=== PATIENT | female | born 1975 | race Caucasian/White ===

== ENCOUNTER 2017-05-30 06:38 | Observation (INO) ==
[2017-05-30] MEDS ORDERED: Ondansetron 4 MG/2 ML VIAL IVP ONE ×2 (07:15→10:59)
[2017-05-30 07:33] LABS: Basophils % 0.3 %; Hemoglobin 15.3 g/dL (11.5-15.4); Immature Granulocytes % 0.3 % (0-4); Lymphocytes # 0.6 K/mcL (0.6-4.6); Lymphocytes % 19.3 %; Mean Corpuscular HGB Conc 36.4 g/dL (31.6-35.5); Mean Corpuscular Hemoglobin 30.1 pg (28.0-33.3); Mean Corpuscular Volume 82.7 fL (83.0-100.0); Mean Platelet Volume 8.9 fL (9.4-12.4); Monocytes # 0.3 K/mcL (0.0-1.3); Monocytes % 8.7 %; Neutrophils # 2.2 K/mcL (1.6-8.9); Platelet Count 106 K/mcL (140-400); Red Blood Count 5.08 M/mcL (3.82-4.97); Red Cell Distribution Width 12.8 % (11.5-14.5); Segmented Neutrophils % 71.4 %
--- NOTE | 2017-05-30 07:48 | Emergency Department Note ---
Disposition Clinical Impression: Dehydration, Nausea vomiting and diarrhea Hyperglycemia due to type 2 diabetes mellitus Qualifiers: Diabetes mellitus [facility] insulin use: with [facility] use Qualified Code(s): E11.65 - Type 2 diabetes mellitus with hyperglycemia UTI (urinary tract infection) Qualifiers: Urinary tract infection type: site unspecified Hematuria presence: without hematuria Qualified Code(s): N39.0 - Urinary tract infection, site not specified Disposition: Admitted As Inpatient Instructions: Urinary Tract Infection in Women (ED), Diabetic Ketoacidosis (ED) , Gastroenteritis (ED) Referrals: NONE,PCP [Primary Care Provider] - Forms: ED Satisfaction Letter, Work/School Release Time of Disposition: 11:41 General Adult HPI - General Chief complaint: ED General Medical Stated complaint: Flu symptoms glucose is high Time Seen by Provider: 05/30/17 07:00 Source: patient Mode of arrival: ambulatory Limitations: no limitations Nursing Notes Reviewed: Yes Vital Signs Reviewed: Yes - History of Present Illness HPI Narrative: Patient is a 42-year-old female who presents to [facility] ED with a chief complaint of high sugar levels as well as nausea, vomiting, cough runny nose. States her symptoms have been going on for the last 4 days. States everyone in her family has been sick. 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 States she is on sliding scale insulin and has been taking this as scheduled. States her glucose levels have been in the 400s for the last couple days. States she woke up at 1:30 AM and had persistent nausea with vomiting. She has also had diarrhea for the last 2 days. Denies any chest pain, difficulty breathing, abdominal pain, problems with urination or bowel movements. Onset (ago): day(s) (4) Pain Scale: 10 Consistency: intermittent Improves with: nothing Worsens with: nothing Associated symptoms: Reports: cough, fever/chills, loss of appetite, nausea/ vomiting. Denies: rash, shortness of breath Treatments Prior to Arrival: none - Related Data Allergies Allergy/AdvReac Type Severity Reaction Status Date / Time Iodinated Contrast- Oral and Allergy Rash Verified 05/30/17 06:58 IV Dye All systems ED: reviewed and negative except as stated. Past Medical History - Past Medical History Attestation: Yes The following information was validated with the patient. Source: patient Medical history: Reports: diabetes, seizures Psychiatric history: Reports: no psych history, PTSD - Social History Smoking Status: Current every day smoker Alcohol use: Reports: none Drug use: Reports: none Physical Exam - General Limitations: no limitations General appearance: alert - Head Head exam: atraumatic, normocephalic, normal inspection - Eye Eye exam: Present: normal appearance, EOMI - ENT ENT exam: normal exam, normal oropharynx, mucous membranes dry - Neck Neck exam: Present: normal inspection, full ROM, trachea midline - Chest Chest inspection: Present: normal inspection, symmetric chest wall rise - Respiratory Respiratory exam: Present: normal lung sounds bilaterally - Cardiovascular Cardiovascular exam: Present: normal rhythm, tachycardia - Abdominal Exam Abdominal exam: Present: soft, Non-Tender. Absent: tenderness, distention, guarding, rebound, rigidity - Extremities Exam Extremities exam: Present: normal inspection, full ROM. Absent: tenderness, pedal edema - Back Exam Back exam: Present: normal inspection, full ROM. Absent: tenderness - Neurological Exam Neurological exam: Present: alert, oriented X3 - Psychiatric Psychiatric exam: Present: normal affect, normal mood - Skin Skin exam: Present: warm, dry, intact, normal color Course Course Narrative: Patient seen and examined. Hyperglycemia with persistent nausea vomiting and diarrhea. We will place an IV line, gave her 2 L IV fluid bolus. We will get lab work to check for diabetic ketoacidosis. We will give her Zofran to help with her symptoms. We will reassess. - Reevaluation(s) Reevaluation #1: Upon reevaluation, patient is feeling much better. She is getting her second liter of IV fluids currently. We will give her some ice chips. Patient's lab work shows that she is hyperglycemic and has elevated serum ketones. However she is not acidotic and does not have an anion gap. I discussed results with the patient. We are under the understanding that if she is feeling better and able to tolerate oral fluids, we will discharge her home. However if she worsens at any point, we will get her admitted to the hospital. Her urinalysis also shows signs of urinary tract infection. We will give her a dose of ciprofloxacin here. Time: 09:46 Reevaluation #2: Patient feeling more nauseous. We will give her another dose of Zofran. Patient received another dose of Zofran and then was still was feeling nauseated. We will go ahead and get her admitted for intractable nausea, hyperglycemia, borderline DKA. Time: 11:18 Reevaluation #3: I discussed uma with hospitalist Dr. Zavala who has accepted patient for admission. He would like in EKG ordered. We will also give her dose of 0.1 mg/ kg bolus of insulin. We will hold off on an insulin drip since she does not have an elevated anion gap. Time: 11:41 Vital Signs Temperature 99.1 F 05/30/17 06:51 Pulse Rate 123 05/30/17 06:51 Respiratory Rate 20 05/30/17 06:51 Blood Pressure 131/83 05/30/17 06:51 O2 Sat by Pulse Oximetry 93 05/30/17 06:51 Temperature 99.1 F 05/30/17 06:51 Pulse Rate 96 05/30/17 11:00 Respiratory Rate 20 05/30/17 11:00 Blood Pressure 122/75 05/30/17 11:00 O2 Sat by Pulse Oximetry 96 05/30/17 11:00 Oxygen Delivery Oxygen Delivery Room Air Medical Decision Making - Medical Records Medical records reviewed: Yes I reviewed the patient's medical records. - Lab Data Lab results reviewed: Yes I reviewed the patient's lab results. Result diagrams: 05/30/17 07:24 05/30/17 07:24 Lab Results 05/30/17 05/30/17 05/30/17 Range/Units 06:56 06:57 07:24 WBC 3.1 L (4.3-11.1) K/mcL RBC 5.08 H (3.82-4.97) M/mcL Hgb 15.3 (11.5-15.4) g/dL Hct 42.0 (35.3-44.9) % MCV 82.7 L (83.0-100.0) fL MCH 30.1 (28.0-33.3) pg MCHC 36.4 H (31.6-35.5) g/dL RDW 12.8 (11.5-14.5) % Plt Count 106 L (140-400) K/mcL MPV 8.9 L (9.4-12.4) fL Immature Gran % 0.3 (0-4) % Seg Neutrophils % 71.4 % Lymphocytes % 19.3 % Monocytes % 8.7 % Eosinophils % 0.0 % Basophils % 0.3 % Neutrophils # 2.2 (1.6-8.9) K/mcL Lymphocytes # 0.6 (0.6-4.6) K/mcL Monocytes # 0.3 (0.0-1.3) K/mcL Eosinophils # 0.0 (0.0-0.6) K/mcL Basophils # 0.0 (0.0-0.2) K/mcL VBG pH (7.32-7.42) pH Units VBG pCO2 (41-51) mmHg VBG pO2 (25-50) mmHg VBG HCO3 (21-27) mEq/L Sodium (136-145) mEq/L Potassium (3.5-5.1) mEq/L Chloride (98-107) mEq/L Carbon Dioxide (23-29) mEq/L BUN (6-20) mg/dL Creatinine (0.60-1.20) mg/dL Est GFR ( Amer) (> 60) Est GFR (Non-Af Amer) (> 60) BUN/Creatinine Ratio (6-26) Glucose (70-105) mg/dL POC Glucose 434 H* 424 H* (70-99) mg/dL Calculated Osmolality (280-300) Calcium (8.6-10.3) mg/dL Total Bilirubin (0.3-1.0) mg/dL AST (13-39) Units/L ALT (7-52) Units/L Alkaline Phosphatase (34-104) Units/L Serum Total Protein (6.4-8.9) g/dL Albumin (3.5-5.7) g/dL Globulin (2.4-3.5) g/dL Albumin/Globulin Ratio (1.1-2.2) Lipase (11-82) Units/L Beta-Hydroxybutyric Acd (0.02-0.27) mmol/L Urine Color (Yellow) Urine Clarity (Clear) Urine pH (5.0-8.0) pH Units Ur Specific [place] (1.010-1.025) Urine Protein (Neg-Trace) mg/dL Urine Glucose (UA) (Normal) mg/dL Urine Ketones (Negative) mg/dL Urine Blood (Negative) Urine Nitrite (Negative) Urine Bilirubin (Negative) Urine Urobilinogen (Normal) mg/dL Ur Leukocyte Esterase (Negative) Urine Microscopic RBC (0-3) per hpf Urine Microscopic WBC (0-3) per hpf Ur Squamous Epith Cells (None-Few) per lpf Urine Bacteria (None-Few) per hpf Hyaline Casts (None-Few) per lpf Ur Culture Indicated? (NO) 05/30/17 05/30/17 05/30/17 Range/Units 07:24 07:24 07:24 WBC (4.3-11.1) K/mcL RBC (3.82-4.97) M/mcL Hgb (11.5-15.4) g/dL Hct (35.3-44.9) % MCV (83.0-100.0) fL MCH (28.0-33.3) pg MCHC (31.6-35.5) g/dL RDW (11.5-14.5) % Plt Count (140-400) K/mcL MPV (9.4-12.4) fL Immature Gran % (0-4) % Seg Neutrophils % % Lymphocytes % % Monocytes % % Eosinophils % % Basophils % % Neutrophils # (1.6-8.9) K/mcL Lymphocytes # (0.6-4.6) K/mcL Monocytes # (0.0-1.3) K/mcL Eosinophils # (0.0-0.6) K/mcL Basophils # (0.0-0.2) K/mcL VBG pH (7.32-7.42) pH Units VBG pCO2 (41-51) mmHg VBG pO2 (25-50) mmHg VBG HCO3 (21-27) mEq/L Sodium 134 L (136-145) mEq/L Potassium 3.8 (3.5-5.1) mEq/L Chloride 100 (98-107) mEq/L Carbon Dioxide 22 L (23-29) mEq/L BUN 22 H (6-20) mg/dL Creatinine 0.68 (0.60-1.20) mg/dL Est GFR ( Amer) > 60 (> 60) Est GFR (Non-Af Amer) > 60 (> 60) BUN/Creatinine Ratio 32 H (6-26) Glucose 430 H (70-105) mg/dL POC Glucose (70-99) mg/dL Calculated Osmolality 300 (280-300) Calcium 9.4 (8.6-10.3) mg/dL Total Bilirubin 0.6 (0.3-1.0) mg/dL AST 19 (13-39) Units/L ALT 13 (7-52) Units/L Alkaline Phosphatase 99 (34-104) Units/L Serum Total Protein 7.3 (6.4-8.9) g/dL Albumin 4.3 (3.5-5.7) g/dL Globulin 3.0 (2.4-3.5) g/dL Albumin/Globulin Ratio 1.4 (1.1-2.2) Lipase 8 L (11-82) Units/L Beta-Hydroxybutyric Acd > 2.00 H (0.02-0.27) mmol/L Urine Color (Yellow) Urine Clarity (Clear) Urine pH (5.0-8.0) pH Units Ur Specific [place] (1.010-1.025) Urine Protein (Neg-Trace) mg/dL Urine Glucose (UA) (Normal) mg/dL Urine Ketones (Negative) mg/dL Urine Blood (Negative) Urine Nitrite (Negative) Urine Bilirubin (Negative) Urine Urobilinogen (Normal) mg/dL Ur Leukocyte Esterase (Negative) Urine Microscopic RBC (0-3) per hpf Urine Microscopic WBC (0-3) per hpf Ur Squamous Epith Cells (None-Few) per lpf Urine Bacteria (None-Few) per hpf Hyaline Casts (None-Few) per lpf Ur Culture Indicated? (NO) 05/30/17 05/30/17 05/30/17 Range/Units 07:45 07:48 10:42 WBC (4.3-11.1) K/mcL RBC (3.82-4.97) M/mcL Hgb (11.5-15.4) g/dL Hct (35.3-44.9) % MCV (83.0-100.0) fL MCH (28.0-33.3) pg MCHC (31.6-35.5) g/dL RDW (11.5-14.5) % Plt Count (140-400) K/mcL MPV (9.4-12.4) fL Immature Gran % (0-4) % Seg Neutrophils % % Lymphocytes % % Monocytes % % Eosinophils % % Basophils % % Neutrophils # (1.6-8.9) K/mcL Lymphocytes # (0.6-4.6) K/mcL Monocytes # (0.0-1.3) K/mcL Eosinophils # (0.0-0.6) K/mcL Basophils # (0.0-0.2) K/mcL VBG pH 7.37 (7.32-7.42) pH Units VBG pCO2 37 L (41-51) mmHg VBG pO2 108 H (25-50) mmHg VBG HCO3 21 (21-27) mEq/L Sodium (136-145) mEq/L Potassium (3.5-5.1) mEq/L Chloride (98-107) mEq/L Carbon Dioxide (23-29) mEq/L BUN (6-20) mg/dL Creatinine (0.60-1.20) mg/dL Est GFR ( Amer) (> 60) Est GFR (Non-Af Amer) (> 60) BUN/Creatinine Ratio (6-26) Glucose (70-105) mg/dL POC Glucose 264 H (70-99) mg/dL Calculated Osmolality (280-300) Calcium (8.6-10.3) mg/dL Total Bilirubin (0.3-1.0) mg/dL AST (13-39) Units/L ALT (7-52) Units/L Alkaline Phosphatase (34-104) Units/L Serum Total Protein (6.4-8.9) g/dL Albumin (3.5-5.7) g/dL Globulin (2.4-3.5) g/dL Albumin/Globulin Ratio (1.1-2.2) Lipase (11-82) Units/L Beta-Hydroxybutyric Acd (0.02-0.27) mmol/L Urine Color Yellow (Yellow) Urine Clarity Hazy A (Clear) Urine pH 6.0 (5.0-8.0) pH Units Ur Specific [place] > 1.030 H (1.010-1.025) Urine Protein 30 H (Neg-Trace) mg/dL Urine Glucose (UA) >=1000 H (Normal) mg/dL Urine Ketones 80 H (Negative) mg/dL Urine Blood Large H (Negative) Urine Nitrite Positive A (Negative) Urine Bilirubin Negative (Negative) Urine Urobilinogen Normal (Normal) mg/dL Ur Leukocyte Esterase Small H (Negative) Urine Microscopic RBC 15-30 H (0-3) per hpf Urine Microscopic WBC TNTC H (0-3) per hpf Ur Squamous Epith Cells Moderate H (None-Few) per lpf Urine Bacteria Many H (None-Few) per hpf Hyaline Casts None Seen (None-Few) per lpf Ur Culture Indicated? YES A (NO)
[2017-05-30 07:50] LABS: VBG HCO3 21 mEq/L (21-27); VBG PCO2 37 mmHg (41-51); VBG PH 7.37 pH Units (7.32-7.42); VBG PO2 108 mmHg (25-50)
[2017-05-30 07:55] LABS: Alanine Aminotransferase 13 Units/L (7-52); Albumin 4.3 g/dL (3.5-5.7); Albumin/Globulin Ratio 1.4 (1.1-2.2); Alkaline Phosphatase 99 Units/L (34-104); Aspartate Amino Transferase 19 Units/L (13-39); BUN/Creatinine Ratio 32 (6-26); Bilirubin,Total 0.6 mg/dL (0.3-1.0); Blood Urea Nitrogen 22 mg/dL (6-20); Calcium 9.4 mg/dL (8.6-10.3); Carbon Dioxide 22 mEq/L (23-29); Chloride 100 mEq/L (98-107); Glucose 430 mg/dL (70-105); Osmolality,Calculated 300 (280-300); Potassium 3.8 mEq/L (3.5-5.1); Sodium 134 mEq/L (136-145); Total Protein 7.3 g/dL (6.4-8.9); eGFR For African Americans > 60 (> 60); eGFR For Non-African Americans > 60 (> 60)
--- NOTE | 2017-05-30 08:12 | Emergency Department Note ---
Disposition Clinical Impression: Dehydration Hyperglycemia due to type 2 diabetes mellitus Qualifiers: Diabetes mellitus custodial insulin use: with oil heaterman use Qualified Code(s): E11.65 - Type 2 diabetes mellitus with hyperglycemia; Z79.4 - intermediate card tender (current ) use of insulin; Z79.4 - retirement (current) use of insulin; Z79.4 - intermediate card tender (current) use of insulin; Z79.4 - intermediate card tender (current) use of insulin Disposition: Still a Patient Forms: ED Satisfaction Letter, Work/School Release General Adult HPI - General Chief complaint: ED General Medical Stated complaint: Flu symptoms glucose is high Time Seen by Provider: 05/30/17 07:00 Source: patient Mode of arrival: ambulatory Limitations: no limitations - History of Present Illness Pain Scale: 10 Improves with: nothing Worsens with: nothing Associated symptoms: Reports: cough, fever/chills, loss of appetite, nausea/ vomiting. Denies: rash, shortness of breath Treatments Prior to Arrival: none - Related Data Allergies Allergy/AdvReac Type Severity Reaction Status Date / Time Iodinated Contrast- Oral and Allergy Rash Verified 05/30/17 06:58 IV Dye Past Medical History - Past Medical History Medical history: Reports: diabetes, seizures Psychiatric history: Reports: no psych history, PTSD - Social History Smoking Status: Current every day smoker Alcohol use: Reports: none Drug use: Reports: none Physical Exam - General Limitations: no limitations General appearance: alert Course - Reevaluation(s) Reevaluation #1: Attestation note I examined this patient and my medical decision-making was reviewed with the emergency medicine resident. I agree with the documented findings, disposition and treatment plan as described except to the extent set forth below. Patient seen with emergency medicine resident Dr. Cayla Oscar, Please see a copy of his note for details of the H&P, ED evaluation, management and disposition. I have independently evaluated the patient and confirmed appropriate portions of the history and physical exam. Briefly 42-year-old female history of pancreatic cyst is on daily insulin injections presents with nausea vomiting and loose stools. Hyperglycemic at 450. Patient is getting IV fluids screening labs disposition is pending. Provided 30 minutes of critical care service for this patient. I will try to exclude DKA or hyperglycemic hyperosmolar nonketotic state. Time: 08:11 Vital Signs Temperature 99.1 F 05/30/17 06:51 Pulse Rate 123 05/30/17 06:51 Respiratory Rate 20 05/30/17 06:51 Blood Pressure 131/83 05/30/17 06:51 O2 Sat by Pulse Oximetry 93 05/30/17 06:51 Temperature 99.1 F 05/30/17 06:51 Pulse Rate 106 05/30/17 07:30 Respiratory Rate 20 05/30/17 07:30 Blood Pressure 125/82 05/30/17 07:30 O2 Sat by Pulse Oximetry 93 05/30/17 07:56 Oxygen Delivery Oxygen Delivery Room Air Medical Decision Making - Lab Data Result diagrams: 05/30/17 07:24 05/30/17 07:24 Lab Results 05/30/17 05/30/17 05/30/17 Range/Units 06:56 06:57 07:24 WBC 3.1 L (4.3-11.1) K/mcL RBC 5.08 H (3.82-4.97) M/mcL Hgb 15.3 (11.5-15.4) g/dL Hct 42.0 (35.3-44.9) % MCV 82.7 L (83.0-100.0) fL MCH 30.1 (28.0-33.3) pg MCHC 36.4 H (31.6-35.5) g/dL RDW 12.8 (11.5-14.5) % Plt Count 106 L (140-400) K/mcL MPV 8.9 L (9.4-12.4) fL Immature Gran % 0.3 (0-4) % Seg Neutrophils % 71.4 % Lymphocytes % 19.3 % Monocytes % 8.7 % Eosinophils % 0.0 % Basophils % 0.3 % Neutrophils # 2.2 (1.6-8.9) K/mcL Lymphocytes # 0.6 (0.6-4.6) K/mcL Monocytes # 0.3 (0.0-1.3) K/mcL Eosinophils # 0.0 (0.0-0.6) K/mcL Basophils # 0.0 (0.0-0.2) K/mcL VBG pH (7.32-7.42) pH Units VBG pCO2 (41-51) mmHg VBG pO2 (25-50) mmHg VBG HCO3 (21-27) mEq/L Sodium (136-145) mEq/L Potassium (3.5-5.1) mEq/L Chloride (98-107) mEq/L Carbon Dioxide (23-29) mEq/L BUN (6-20) mg/dL Creatinine (0.60-1.20) mg/dL Est GFR ( Amer) (> 60) Est GFR (Non-Af Amer) (> 60) BUN/Creatinine Ratio (6-26) Glucose (70-105) mg/dL POC Glucose 434 H* 424 H* (70-99) mg/dL Calculated Osmolality (280-300) Calcium (8.6-10.3) mg/dL Total Bilirubin (0.3-1.0) mg/dL AST (13-39) Units/L ALT (7-52) Units/L Alkaline Phosphatase (34-104) Units/L Serum Total Protein (6.4-8.9) g/dL Albumin (3.5-5.7) g/dL Globulin (2.4-3.5) g/dL Albumin/Globulin Ratio (1.1-2.2) Lipase (11-82) Units/L 05/30/17 05/30/17 05/30/17 Range/Units 07:24 07:24 07:45 WBC (4.3-11.1) K/mcL RBC (3.82-4.97) M/mcL Hgb (11.5-15.4) g/dL Hct (35.3-44.9) % MCV (83.0-100.0) fL MCH (28.0-33.3) pg MCHC (31.6-35.5) g/dL RDW (11.5-14.5) % Plt Count (140-400) K/mcL MPV (9.4-12.4) fL Immature Gran % (0-4) % Seg Neutrophils % % Lymphocytes % % Monocytes % % Eosinophils % % Basophils % % Neutrophils # (1.6-8.9) K/mcL Lymphocytes # (0.6-4.6) K/mcL Monocytes # (0.0-1.3) K/mcL Eosinophils # (0.0-0.6) K/mcL Basophils # (0.0-0.2) K/mcL VBG pH 7.37 (7.32-7.42) pH Units VBG pCO2 37 L (41-51) mmHg VBG pO2 108 H (25-50) mmHg VBG HCO3 21 (21-27) mEq/L Sodium 134 L (136-145) mEq/L Potassium 3.8 (3.5-5.1) mEq/L Chloride 100 (98-107) mEq/L Carbon Dioxide 22 L (23-29) mEq/L BUN 22 H (6-20) mg/dL Creatinine 0.68 (0.60-1.20) mg/dL Est GFR ( Amer) > 60 (> 60) Est GFR (Non-Af Amer) > 60 (> 60) BUN/Creatinine Ratio 32 H (6-26) Glucose 430 H (70-105) mg/dL POC Glucose (70-99) mg/dL Calculated Osmolality 300 (280-300) Calcium 9.4 (8.6-10.3) mg/dL Total Bilirubin 0.6 (0.3-1.0) mg/dL AST 19 (13-39) Units/L ALT 13 (7-52) Units/L Alkaline Phosphatase 99 (34-104) Units/L Serum Total Protein 7.3 (6.4-8.9) g/dL Albumin 4.3 (3.5-5.7) g/dL Globulin 3.0 (2.4-3.5) g/dL Albumin/Globulin Ratio 1.4 (1.1-2.2) Lipase 8 L (11-82) Units/L
[2017-05-30] MEDS: 0.9 % Sodium Chloride 1,000 ML IVC SCH ×3 (08:37→17:11)
[2017-05-30 08:46] LABS: Bilirubin,Urine Negative (Negative); Blood,Urine Large (Negative); Color,Urine Yellow (Yellow); Glucose,Urine (UA) >=1000 mg/dL (Normal); Ketones,Urine 80 mg/dL (Negative); Leukocyte Esterase,Urine Small (Negative); Nitrite,Urine Positive (Negative); Protein,Urine 30 mg/dL (Neg-Trace); Specific Gravity,Urine > 1.030 (1.010-1.025); Urobilinogen,Urine Normal (Normal)
[2017-05-30 08:49] LABS: Bacteria,Urine Many per hpf (None-Few); Hyaline Casts,Urine None Seen per lpf (None-Few); RBC,Urine 15-30 per hpf (0-3); Squamous Epithelial Cell,Urine Moderate per lpf (None-Few); WBC,Urine TNTC per hpf (0-3)
[2017-05-30 08:51] LABS: Clarity,Urine Hazy (Clear)
[2017-05-30] MEDS ORDERED: Insulin Regular, Human 100 UNIT/ML IV ONE (11:45)
[2017-05-30] MEDS ORDERED: *HR* Dextrose 50 % in Water (Syg) 50 ML SYRINGE IVP PRN (14:00)
[2017-05-30] MEDS ORDERED: Dextrose Gel 15 GM/37.5 ML TUBE PO PRN ×2 (14:00)
[2017-05-30] MEDS ORDERED: D5% in Water 1,000 ML IVC PRN (14:00)
--- NOTE | 2017-05-30 16:57 | Electrocardiograph Report ---
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
[2017-05-30] MEDS ORDERED: Insulin DETEMIR 100 UNIT/ML X5UNITS SQ ONE (17:00)
[2017-05-30] MEDS: Insulin LISPRO 300 UNITS/3 ML VIAL SQ SCH (17:10)
[2017-05-30] MEDS ORDERED: 0.9 % Sodium Chloride 1,000 ML IVC ONE (19:19)
[2017-05-30] MEDS: cefTRIAXone 2,000 MG in Water for inj. (sterile) 20 ML 20 ML IVP SCH (20:17)
[2017-05-30] MEDS ORDERED: clonazePAM 1 MG TABLET PO PRN (21:47)
[2017-05-30] MEDS ORDERED: Albuterol 2.5 MG/3 ML NEBULIZER IH PRN (21:59)
[2017-05-30] MEDS ORDERED: Azithromycin 500 MG in D5% in Water 250 ML IVPB SCH (22:00)
--- NOTE | 2017-05-30 22:04 | Internal Med History&Physical ---
Date of Encounter: 05/30/17 Time of Encounter: 16:00 Internal Medicine - H&P: HPI Chief complaint: cough, History of present illness: Ms. Arreola is a 42 year old female history of pancreatic pseudocyst, pancreatic disorder who presents with complaint of feeling ill. Patient notes feeling ill cough, some left-sided back pain. Patient notes she thinks she has type 2 diabetes. Patient also diabetes has been treated by her pancreatic "cysts". Patient was positive sick contacts at home in multiple family members with upper respiratory tract symptoms. Patient notes cough productive of clear sputum. Patient denies hemoptysis. Patient denies dysuria or diarrhea. Patient also fleeting abdominal discomfort. Patient with episode of loose stool which is now resolved. She denies melena or hematochezia. Patient to be admitted for further evaluation. Past Med Surg Social Fam HX - Past Medical History Medical history: diabetes, seizures Psychiatric history: no psych history, PTSD - Past Surgical History Surgical History: , cholecystectomy, hysterectomy - Social History Smoking Status: Current every day smoker Packs per day: 1 Smokeless Tobacco Status: No Alcohol use: none Drug use: none - Additional Family History Additional family history: Negative for this particular admission Internal Medicine - H&P: Meds Cyclobenzaprine HCl 5 mg PO TID PRN 05/30/17 [History] Insulin ASPART [NovoLOG] 0 unit SQ TIDWM 05/30/17 [History] Insulin Glargine,Hum.rec.anlog [Lantus Solostar] 30 unit SQ HS 05/30/17 [History ] Phenytoin ER [Dilantin ER] 200 mg PO BID 05/30/17 [History] clonazePAM [Klonopin] 1 mg PO TID PRN 05/30/17 [History] 3 Allergy/AdvReac Type Severity Reaction Status Date / Time Iodinated Contrast- Oral and Allergy Rash Verified 05/30/17 06:58 IV Dye All Systems PM: A 10-system review of systems was performed and is negative for pertinent findings except as documented above in the HPI. Review of systems: All systems reviewed and negative except as mentioned in history of present illness - Constitutional Vitals: Temp Pulse Resp BP Pulse Ox 98.8 F 96 16 110/69 96 05/30/17 20:41 05/30/17 20:41 05/30/17 20:41 05/30/17 20:41 05/30/17 20:41 Vital signs as above Gen.: On per distress, cooperative, able to speak in full sentences HEENT: Atraumatic, normocephalic, pupils are intact, PERRL, there is no scleral icterus Neck: No JVD dependable patient for range of motion Heart: Normal S1 and S2 regular rate and rhythm Abdomen soft, nontender, nondistended, positive bowel sounds, no guarding, no rigidity Back: mild CVA Tenderness Musculoskeletal: Patient moves all 4 extremities freely, no pain to palpation of the large joints, tenderness, no pedal edema Neuro: Nonfocal, no lateralization, Skin: Intact. Internal Med - H&P Results - Labs CBC & Chem 7: 05/30/17 07:24 05/30/17 22:03 - Impressions ITS Impressions Chest CT 05/30/17 19:21 IMPRESSION: Mediastinal adenopathy. Faint ground-glass and nodular density in the right middle lobe. This is indeterminate may represent a small segment of atelectasis or pneumonia. A pathologic nodule is considered less likely. However, given the mediastinal adenopathy, follow-up imaging is required. Small pleural effusions with associated dependent atelectasis. Pneumonia is considered less likely. D/ / Fuentes Smith / Fuentes Smith Interpreting Provider: Fuentes Smith Abdomen/Pelvis CT 05/30/17 19:23 IMPRESSION: 1. Patient has small pericardial effusion, and small bilateral pleural effusions. 2. Pancreas contains multiple calcifications likely related to chronic pancreatitis. 3. Splenomegaly with prominent splenic vessels. 4. Urinary bladder demonstrates wall thickening and contains some intraluminal air, appearance most compatible with cystitis. Other findings as above. D/ / 05/30/2017 20:42:45 Brooklynn Dong MD / Yvonne Sherwood Interpreting Provider: Brooklynn Dong MD - Assessment and plan (1) PNA (pneumonia) Current Visit: Yes Status: Acute Assessment and plan: Patient with cough, sputum production CT chest shows evidence of atelectasis versus early pneumonia check blood culture, urine strep, Legionella, Mycoplasma, respiratory viral panel Sputum culture Empiric antibiotics, abnormal CAT scan shows evidence of mediastinal lymphadenopathy, etiology to be determined Pulmonary consultation in a.m. Qualifiers: Qualified Code(s): J18.9 - Pneumonia, unspecified organism (2) Mediastinal adenopathy Current Visit: Yes Status: Acute Assessment and plan: see above , will need pulmonary consultation (3) Dehydration Current Visit: Yes Status: Acute Assessment and plan: Secondary to nausea and vomiting Goal directed fluid resuscitation (4) Hyperglycemia due to type 2 diabetes mellitus Current Visit: Yes Status: Acute Assessment and plan: Per patient she has history of type 2 diabetes At this time patient has non-anion Metabolic acidosis. Patient has been having diarrhea prior to admission. Insulin sliding scale, restart Lantus, serial Accu-Cheks Check stool culture, C. difficile, Goal-directed fluid resuscitation Qualifiers: Diabetes mellitus petroleum terminal plant operator insulin use: with petroleum terminal plant operator use Qualified Code( s): E11.65 - Type 2 diabetes mellitus with hyperglycemia; Z79.4 - jail ( current) use of insulin; Z79.4 - jail (current) use of insulin; Z79.4 - jail (current) use of insulin; Z79.4 - termite control technician (current) use of insulin (5) Nausea vomiting and diarrhea Current Visit: Yes Status: Acute Assessment and plan: See above (6) UTI (urinary tract infection) Current Visit: Yes Status: Acute Assessment and plan: Evidence of cystitis noted on CAT scan, no obstruction Empiric parenteral antibiotics, urine culture, blood culture Qualifiers: Urinary tract infection type: site unspecified Hematuria presence: without hematuria Qualified Code(s): N39.0 - Urinary tract infection, site not specified (7) DVT prophylaxis Current Visit: Yes Status: Acute Assessment and plan: SCD's for VTE prophylaxis , hold chemical prophylaxis for now pending any possible intervention Further condition critical course, repeat laboratory data, from a neurologic, patient may require additional consultation - Time Spent With Patient Total time spent is greater than 50% in coordination of care (as documented) at patient's floor/unit and/or counseling patient:
[2017-05-30 22:39] LABS: Alanine Aminotransferase 8 Units/L (7-52); Albumin/Globulin Ratio 1.3 (1.1-2.2); Alkaline Phosphatase 65 Units/L (34-104); Aspartate Amino Transferase 15 Units/L (13-39); BUN/Creatinine Ratio 25 (6-26); Bilirubin,Total 0.3 mg/dL (0.3-1.0); Blood Urea Nitrogen 14 mg/dL (6-20); Calcium 7.8 mg/dL (8.6-10.3); Carbon Dioxide 21 mEq/L (23-29); Chloride 107 mEq/L (98-107); Globulin 2.3 g/dL (2.4-3.5); Glucose 314 mg/dL (70-105); Osmolality,Calculated 294 (280-300); Potassium 3.7 mEq/L (3.5-5.1); Sodium 136 mEq/L (136-145); Total Protein 5.3 g/dL (6.4-8.9); eGFR For African Americans > 60 (> 60); eGFR For Non-African Americans > 60 (> 60)
[2017-05-30] MEDS ORDERED: Acetaminophen 325 MG TABLET PO PRN (23:24)
[2017-05-30 23:45] LABS: Bilirubin,Urine Negative (Negative); Blood,Urine Moderate (Negative); Clarity,Urine Cloudy (Clear); Color,Urine Yellow (Yellow); Glucose,Urine (UA) >=1000 mg/dL (Normal); Ketones,Urine 40 mg/dL (Negative); Leukocyte Esterase,Urine Small (Negative); Nitrite,Urine Negative (Negative); Protein,Urine 30 mg/dL (Neg-Trace); Specific Gravity,Urine 1.029 (1.010-1.025); Urobilinogen,Urine Normal (Normal)
[2017-05-30 23:46] LABS: Bacteria,Urine None Seen per hpf (None-Few); Hyaline Casts,Urine None Seen per lpf (None-Few); RBC,Urine 50-100 per hpf (0-3); Squamous Epithelial Cell,Urine Many per lpf (None-Few); WBC,Urine TNTC per hpf (0-3)
[2017-05-30] MEDS: Insulin DETEMIR 100 UNIT/ML X5UNITS SQ SCH (23:50)
[2017-05-31 00:28] LABS: Adenovirus Not Detected (Not Detect); Bordetella Pertussis Not Detected (Not Detect); Chlamydophila pneumoniae Not Detected (Not Detect); Coronavirus 229E Not Detected (Not Detect); Coronavirus HKU1 Not Detected (Not Detect); Coronavirus NL63 Not Detected (Not Detect); Coronavirus OC43 Not Detected (Not Detect); Human Metapneumovirus Not Detected (Not Detect); Human Rhinovirus/Enterovirus Not Detected (Not Detect); Influenza A Subtype 2009 H1 Not Detected (Not Detect); Influenza A Untypeable Not Detected (Not Detect); Mycoplasma pneumoniae Not Detected (Not Detect); Parainfluenza Virus 1 Not Detected (Not Detect); Parainfluenza Virus 2 Not Detected (Not Detect); Parainfluenza Virus 3 Not Detected (Not Detect); Parainfluenza Virus 4 Not Detected (Not Detect); Respiratory Syncytial Virus Not Detected (Not Detect)
[2017-05-31 00:29] LABS: Influenza B ***DETECTED*** (Not Detect)
[2017-05-31] MEDS: Insulin LISPRO 300 UNITS/3 ML VIAL SQ SCH ×5 (08:41→17:34)
--- NOTE | 2017-05-31 10:29 | Internal Med Progress Note ---
Date of Encounter: 05/31/17 Time of Encounter: 10:29 - Assessment and plan (1) Influenza B Current Visit: Yes Status: Acute Assessment and plan: Sepsis secondary to influenza B, possible community-acquired pneumonia and acute cystitis/UTI SIRS: White blood cell count is 2.1, heart rate was 123, improving Continue Tamiflu day #2 Continue Rocephin day #2 Urine culture pending IV fluids (2) Dehydration Current Visit: Yes Status: Acute Assessment and plan: Secondary to nausea and vomiting Goal directed fluid resuscitation (3) Hyperglycemia due to type 2 diabetes mellitus Current Visit: Yes Status: Acute Assessment and plan: Per patient she has history of type 2 diabetes has non-anion Metabolic acidosis. Patient has been having diarrhea prior to admission. Insulin sliding scale, Levemir, start Humalog 8 units 3 times a day Qualifiers: Diabetes mellitus fpc insulin use: with fpc use Qualified Code( s): E11.65 - Type 2 diabetes mellitus with hyperglycemia; Z79.4 - [facility] ( current) use of insulin; Z79.4 - [facility] (current) use of insulin; Z79.4 - [facility] (current) use of insulin; Z79.4 - [facility] (current) use of insulin (4) UTI (urinary tract infection) Current Visit: Yes Status: Acute Assessment and plan: Acute cystitis Evidence of cystitis noted on CAT scan, no obstruction Continue Rocephin day #2 urine culture, blood culture Qualifiers: Urinary tract infection type: site unspecified Hematuria presence: without hematuria Qualified Code(s): N39.0 - Urinary tract infection, site not specified (5) PNA (pneumonia) Current Visit: Yes Status: Acute Assessment and plan: Secondary to influenza B Continue Tamiflu day #2 CAT scan shows evidence of mediastinal lymphadenopathy, etiology to be determined May discontinue azithromycin. Qualifiers: Qualified Code(s): J18.9 - Pneumonia, unspecified organism (6) Mediastinal adenopathy Current Visit: Yes Status: Acute Assessment and plan: Likely due to influenza (7) Seizures Current Visit: Yes Status: Acute Assessment and plan: History of seizure disorder Continue Dilantin - Time Spent With Patient Total time spent is greater than 50% in coordination of care (as documented) at patient's floor/unit and/or counseling patient: - Subjective Interval history: Complaining of mild shortness of breath, less dysuria, no chest pain, no abdominal pain, no diarrhea, no fevers, no headaches - Constitutional Vitals: Temp Pulse Resp BP Pulse Ox 98.7 F 79 16 108/68 95 05/31/17 07:36 05/31/17 07:36 05/31/17 07:36 05/31/17 07:36 05/31/17 07:36 General appearance: Present: A&O X 3 - Head Head exam: Present: atraumatic, normocephalic - Eye Eye exam: Present: PERRL, conjuntiva pink, sclera anicteric Pupils: Present: PERRL - Neck Neck exam general surgery: Present: supple, trachea midline. Absent: lymphadenopathy - Respiratory Respiratory exam: Present: CTAB. Absent: accessory muscle use, rales, rhonchi, wheezes - Cardiovascular Cardiovascular exam: Present: RRR, +S1, +S2. Absent: diastolic murmur, gallop, rubs, systolic murmur - GI/Abdominal GI/Abdominal exam: Present: normal bowel sounds, soft, no peritoneal signs. Absent: distended, tenderness - Extremities Exam Extremities exam: Present: warm, radial pulses palpable and symmetrical. Absent : calf tenderness, cyanotic, pedal edema - Neurological Exam Neurological exam: Present: CN II-XII intact, oriented X3, no focal deficits. Absent: pronater drift, facial droop, speech deficit - Skin Skin exam: Present: dry, intact Internal Medicine: Result - Labs CBC & Chem 7: 05/30/17 07:24 05/30/17 22:03 Labs: BMP 05/30/17 22:03 Sodium 136 Potassium 3.7 Chloride 107 Carbon Dioxide 21 L BUN 14 Creatinine 0.57 L Glucose 314 H Calcium 7.8 L Liver Function 05/30/17 Range/Units 22:03 Total Bilirubin 0.3 (0.3-1.0) mg/dL AST 15 (13-39) Units/L ALT 8 (7-52) Units/L Alkaline Phosphatase 65 (34-104) Units/L Albumin 3.0 L (3.5-5.7) g/dL Urine 05/30/17 Range/Units 23:00 Urine Color Yellow (Yellow) Urine Clarity Cloudy A (Clear) Urine pH 6.0 (5.0-8.0) pH Units Ur Specific [place] 1.029 H (1.010-1.025) Urine Protein 30 H (Neg-Trace) mg/dL Urine Glucose (UA) >=1000 H (Normal) mg/dL - Impressions Impressions Chest CT 05/30/17 19:21 IMPRESSION: Mediastinal adenopathy. Faint ground-glass and nodular density in the right middle lobe. This is indeterminate may represent a small segment of atelectasis or pneumonia. A pathologic nodule is considered less likely. However, given the mediastinal adenopathy, follow-up imaging is required. Small pleural effusions with associated dependent atelectasis. Pneumonia is considered less likely. D/ / Fuentes Smith / Fuentes Smith Interpreting Provider: Fuentes Smith Abdomen/Pelvis CT 05/30/17 19:23 IMPRESSION: 1. Patient has small pericardial effusion, and small bilateral pleural effusions. 2. Pancreas contains multiple calcifications likely related to chronic pancreatitis. 3. Splenomegaly with prominent splenic vessels. 4. Urinary bladder demonstrates wall thickening and contains some intraluminal air, appearance most compatible with cystitis. Other findings as above. D/ / 05/30/2017 20:42:45 Brooklynn Dong MD / Yvonne Sherwood Interpreting Provider: Brooklynn Dong MD Consult Discharge Plan - Plan Referrals: NONE,PCP [Primary Care Provider] -
[2017-05-31 11:11] LABS: Hematocrit 37.2 % (35.3-44.9); Mean Corpuscular HGB Conc 36.3 g/dL (31.6-35.5); Mean Corpuscular Hemoglobin 30.3 pg (28.0-33.3); Mean Corpuscular Volume 83.4 fL (83.0-100.0); Mean Platelet Volume 8.8 fL (9.4-12.4); Red Blood Count 4.46 M/mcL (3.82-4.97)
[2017-05-31 11:13] LABS: Hemoglobin 13.5 g/dL (11.5-15.4); Platelet Count 98 K/mcL (140-400)
[2017-05-31 11:23] LABS: BUN/Creatinine Ratio 17 (6-26); Blood Urea Nitrogen 9 mg/dL (6-20); Calcium 8.4 mg/dL (8.6-10.3); Carbon Dioxide 24 mEq/L (23-29); Chloride 109 mEq/L (98-107); Glucose 192 mg/dL (70-105); Osmolality,Calculated 294 (280-300); Potassium 3.4 mEq/L (3.5-5.1); Sodium 140 mEq/L (136-145); eGFR For African Americans > 60 (> 60); eGFR For Non-African Americans > 60 (> 60)
[2017-05-31] MEDS: Nicotine 14 MG PATCH.TD24 TD SCH (13:02)
[2017-05-31] MEDS: cefTRIAXone 2,000 MG in Water for inj. (sterile) 20 ML 20 ML IVP SCH (17:33)
[2017-05-31] MEDS: Insulin DETEMIR 100 UNIT/ML X5UNITS SQ SCH (19:33)
[2017-05-31] MEDS: 0.9 % Sodium Chloride 1,000 ML IVC SCH (19:34)
[2017-06-01 02:08] LABS: Hematocrit 33.9 % (35.3-44.9); Hemoglobin 12.1 g/dL (11.5-15.4); Immature Platelets 1.1 % (1.1-6.1); Mean Corpuscular HGB Conc 35.7 g/dL (31.6-35.5); Mean Corpuscular Volume 84.1 fL (83.0-100.0); Mean Platelet Volume 9.2 fL (9.4-12.4); Red Blood Count 4.03 M/mcL (3.82-4.97)
[2017-06-01 02:25] LABS: BUN/Creatinine Ratio 24 (6-26); Blood Urea Nitrogen 10 mg/dL (6-20); Calcium 8.2 mg/dL (8.6-10.3); Carbon Dioxide 23 mEq/L (23-29); Chloride 111 mEq/L (98-107); Glucose 135 mg/dL (70-105); Osmolality,Calculated 293 (280-300); Potassium 3.2 mEq/L (3.5-5.1); Sodium 141 mEq/L (136-145); eGFR For African Americans > 60 (> 60); eGFR For Non-African Americans > 60 (> 60)
[2017-06-01] MEDS: Insulin LISPRO 300 UNITS/3 ML VIAL SQ SCH ×4 (07:31→12:09)
[2017-06-01] MEDS: Nicotine 14 MG PATCH.TD24 TD SCH (07:43)
--- NOTE | 2017-06-01 11:44 | Discharge Summary ---
- NOTES TO OUTPATIENT PROVIDER Notes to Outpatient Provider: Follow-up with primary care physician within the next 7 days. Complete 6 more doses of Tamiflu. Complete treatment with Cefdinir, quit smoking Orders not resulted at time of discharge: Pending orders 05/30/17 22:02 Culture,Blood [BC] Stat Culture,Blood,Additional [BC] Stat 05/30/17 22:12 Mycoplasma pneumoniae IgG IgM Routine Date of Encounter: 06/01/17 Time of Encounter: 11:42 - Discharge Diagnosis (1) Influenza B Priority: Primary Status: Acute (2) Dehydration Priority: Primary Status: Acute Comments: Secondary to nausea and vomiting (3) Hyperglycemia due to type 2 diabetes mellitus Priority: Secondary Status: Acute Qualifiers: Diabetes mellitus salvage determiner insulin use: with assisted use Qualified Code( s): E11.65 - Type 2 diabetes mellitus with hyperglycemia; Z79.4 - salvage determiner ( current) use of insulin; Z79.4 - salvage determiner (current) use of insulin; Z79.4 - salvage determiner (current) use of insulin; Z79.4 - skilled nursing (current) use of insulin (4) UTI (urinary tract infection) Priority: Primary Status: Acute Qualifiers: Urinary tract infection type: site unspecified Hematuria presence: without hematuria Qualified Code(s): N39.0 - Urinary tract infection, site not specified (5) PNA (pneumonia) Priority: Primary Status: Acute Comments: Community-acquired pneumonia, influenza B Qualifiers: Qualified Code(s): J18.9 - Pneumonia, unspecified organism (6) Mediastinal adenopathy Priority: Secondary Status: Acute (7) Seizures Priority: Secondary Status: Acute Hospital course: Ms. Arreola is a 42 year old female with a past medical history of tobacco use, diabetes type 2 insulin-dependent, seizure disorder on phenytoin, pancreatic pseudocyst/pancreatic disorder who presented with complaint of "feeling ill". Patient noted feeling ill cough, some left-sided back pain. Has been treated by her pancreatic "cysts". Patient had positive sick contacts at home in multiple family members with upper respiratory tract symptoms. Patient noted cough productive of clear sputum. Was diagnosed with Sepsis secondary to influenza B, possible community-acquired pneumonia and acute cystitis/UTI SIRS: White blood cell count is 2.1, heart rate was 123, improved. CT scan of the chest showed:Mediastinal adenopathy. Faint ground-glass and nodular density in the right middle lobe. This is indeterminate may represent a small segment of atelectasis or pneumonia. CT scan of the abdomen showed:1. Small pericardial effusion, and small bilateral pleural effusions. 2. Pancreas contains multiple calcifications likely related to chronic pancreatitis. 3. Splenomegaly with prominent splenic vessels. 4. Urinary bladder demonstrates wall thickening and contains some intraluminal air, appearance most compatible with cystitis. Urine culture grew Enterobacter cloacae sensitive to Rocephin. The patient improved on Tamiflu and Rocephin. Azithromycin was discontinued Stable to be discharged Time spent discussing smoking cessation with patient: 3 to 10 minutes - Time Spent with Patient Total time spent providing and/or coordinating discharge services: Greater than 30 minutes (40 min) - Discharge Medications Prescriptions: Cefdinir [Omnicef] 300 mg PO BID #8 capsule Oseltamivir [Tamiflu] 75 mg PO BID #6 capsule Home Medications: Cyclobenzaprine HCl 5 mg PO TID PRN 05/30/17 [History] Insulin ASPART [NovoLOG] 0 unit SQ TIDWM 05/30/17 [History] Insulin Glargine,Hum.rec.anlog [Lantus Solostar] 30 unit SQ HS 05/30/17 [History ] Phenytoin ER [Dilantin ER] 200 mg PO BID 05/30/17 [History] clonazePAM [Klonopin] 1 mg PO TID PRN 05/30/17 [History] Cefdinir [Omnicef] 300 mg PO BID #8 capsule 06/01/17 [Rx] Oseltamivir [Tamiflu] 75 mg PO BID #6 capsule 06/01/17 [Rx] Allergies/Adverse Reactions: 3 Allergy/AdvReac Type Severity Reaction Status Date / Time Iodinated Contrast- Oral and Allergy Rash Verified 05/30/17 06:58 IV Dye Date of admission: 05/30/17 12:03 Primary care physician: PCP NONE - Constitutional Vitals: Temp Pulse Resp BP Pulse Ox 97.9 F 78 18 124/80 93 06/01/17 07:00 06/01/17 07:00 06/01/17 07:00 06/01/17 07:00 06/01/17 07:00 General appearance: Present: A&O X 3 - Head Head exam: Present: atraumatic, normocephalic - Eye Eye exam: Present: PERRL, conjuntiva pink, sclera anicteric Pupils: Present: PERRL - Neck Neck exam general surgery: Present: supple, trachea midline. Absent: lymphadenopathy - Respiratory Respiratory exam: Present: CTAB. Absent: accessory muscle use, rales, rhonchi, wheezes - Cardiovascular Cardiovascular exam: Present: RRR, +S1, +S2. Absent: diastolic murmur, gallop, rubs, systolic murmur - GI/Abdominal GI/Abdominal exam: Present: normal bowel sounds, soft, no peritoneal signs. Absent: distended, tenderness - Extremities Exam Extremities exam: Present: warm, radial pulses palpable and symmetrical. Absent : calf tenderness, cyanotic, pedal edema - Neurological Exam Neurological exam: Present: CN II-XII intact, oriented X3, no focal deficits. Absent: pronater drift, facial droop, speech deficit - Skin Skin exam: Present: dry, intact - Patient Status Disposition: Home, Self-Care Condition: Good Overall status at discharge: patient is progressing back to baseline - Discharge Instructions Follow Up With: NONE,PCP [Primary Care Provider] - Additional Instructions: Follow-up with primary care physician within the next 7 days. Complete 6 more doses of Tamiflu. Complete treatment with Cefdinir, quit smoking - Diet and Activity Activity: increase activity as tolerated Diet: low fat, low cholesterol
[2017-06-01 11:55] VITALS: BP 121/83
[2017-06-03 08:22] LABS: Mycoplasma pneumoniae IgG 0.13 U/L (<=0.09)
== END 2017-06-01 14:10 | disposition home or self-care (01) ==
LOC: EDBD → 3NENU 06:38 → EMEROO 06:38 → 3NENU 13:46
PROVIDERS: ADMIT Internal Medicine; ATTEND Internal Medicine